=== PATIENT | female | born 1985 | race Caucasian/White ===

== ENCOUNTER 2021-11-06 11:38 | Emergency (ER) | payer MEDICAID ==
[~2021-11-06] VITALS: Ht 160 cm; Wt 56.8 kg
[2021-11-06 11:47] VITALS: BP 120/73
[2021-11-06] MEDS ORDERED: ACYC-128 PO (11:52)
[2021-11-06] MEDS ORDERED: ACYC5CRE2 TP (11:52)
[2021-11-06] MEDS ORDERED: TRIF7.5D5 RIGHTEYE (11:52)
== END 2021-11-06 12:07 | disposition home or self-care (01) ==
LOC: ER 11:40
DX: B00.59 Other herpesviral disease of eye (principal)
CPT/HCPCS: 99283